=== PATIENT | female | born 1970 | race Caucasian/White ===

== ENCOUNTER 2016-08-14 13:40 | Inpatient (IN) | payer OTHER ==
[~2016-08-14] VITALS: Ht 162.6 cm; Wt 120.9 kg
[~2016-08-14 13:40] MED LIST: BPR100TCR PO; HYDR50CA PO; METH40CP PO; OXYC1CAP21 PO; PRAM0.5T PO; SCOP1PAT TD; TEMA15CA PO; [UNRECOGNIZED DRUG - CODE] PO
[2016-08-14 13:42] VITALS: BP 150/99; PULSE 85; RESP 20; O2SAT 98
[2016-08-14] MEDS ORDERED: LISI-571 PO (13:48)
[2016-08-14] MEDS ORDERED: TRAZ-118 PO (13:48)
[2016-08-14] MEDS ORDERED: Ondansetron 2 mg/mL 2 mL Inj IVPUSH ONE ×2 (14:10→15:45)
--- NOTE | 2016-08-14 15:04 | ED.REPORT ---
HPI-Abd Pain F 40 and Over Date of Service Aug 14, 2016 ED Provider: Jus Suero MD The patient is a 45 year old female with history of hypertension, who presents to the emergency department complaining of LLQ pain that began a few days. Today she has noticed pain in her LUQ and RLQ, and she has also experienced nausea, loose stools, and vomiting. She was seen at urgent care 2 days ago for similar pain and she had a CT scan that showed findings consistent with ovarian cancer. She was discharged home with Percocet for pain. The pain medication has not been helping. She has an appointment with an oncologist next . She was treated with Augmentin and another antibiotic that she does not recall, 2 months ago for bronchitis. Her last dose of Augmentin was a few days ago. She has still noticed a mild cough. She denies chills, fever, congestion, pleuritic pain, shortness of breath, chest pain, bloody stools, bloody emesis, dysuria, hematuria or rash. Nursing Notes Stated Complaint: SEVERE ABDOMINAL PAIN Chief Complaint: Female Abdominal Pain Nursing Notes Reviewed: Yes Allergies: Coded Allergies: Adhesives (Verified Allergy, Severe, SKIN REACTION, 08/14/16) Uncoded Allergies: TINC OF BENZOIN (Allergy, Severe, BLISTERS, 09/30/09) Scheduled Aspirin (Aspirin) 81 Mg Tablet 81 MG PO DAILY Cholecalciferol (Vitamin D3) (Vitamin D3) 2,000 Unit Capsule 2,000 UNIT PO DAILY Escitalopram Oxalate (Escitalopram Oxalate) 20 Mg Tablet 20 MG PO DAILY Hydrochlorothiazide (Hydrochlorothiazide) 25 Mg Tablet 25 MG PO DAILY Lisinopril (Lisinopril) 10 Mg Tablet 10 MG PO DAILY Multivitamin (Multivitamins) 1 Each Capsule 1 EACH PO DAILY Pramipexole Dihydrochloride (Mirapex) 0.5 Mg Tablet 0.5 MG PO HS Trazodone (Trazodone) 50 Mg Tablet 100 MG PO HS Scheduled PRN oxyCODONE-Acetaminophen 5-325 mg (oxyCODONE-Acetaminophen 5-325 mg) 1 Each Tablet 1-2 TAB PO Q6H PRN PRN For Pain General Time Seen by MD: 14:59 Chief Complaint Abdominal pain Hx Obtained From: Patient Arrived By: Walk-in Sudden in Onset?: No Onset Occurred: 4 days ago Symptom Duration: Since onset Progression since Onset: Constant Location: : LLQ Quality: Painful Radiation: : LUQ: RLQ Severity: Current: Moderate Severity: Maximum: Moderate Associated with: Reports: Nausea, Vomiting Pertinent Negative: Pt denies other symptoms Recent Healthcare: No recent hospitalization, Recent doctor visit, Prior workup Similar Sx Previous: Yes Past Medical History Past Medical History Hypertension Ovarian mass seen on CT (08/12/2016) Family History Noncontributory Smoking History Unknown if Ever Smoker Social History Other Social History: Local 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 Ears / Nose / Throat: Denies: Nasal congestion Skin: Denies Rash Physical Exam Vital Signs Vital Signs (First) Date Time Temp Pulse Resp B/P Pulse Ox O2 Delivery O2 Flow Rate FiO2 08/14/16 13:42 36.5 85 20 150/99 98 Room Air Initial VS: Reviewed Head / Eyes: Atraumatic, Normocephalic, PERRL ENT: Mucous membranes moist, Conjunctiva normal, No scleral icterus Neck: Supple, Non-tender, Full range of motion Lymphatic: No lymphadenopathy Extremities: Vascular intact, Neuro intact, No swelling, No tenderness Skin: Warm, Dry, No cyanosis Neurologic: Alert, Oriented, Nonfocal Psychiatric: Mood/affect normal, Behavior normal, Normal thought content General/Constitutional: Awake, Alert, Cooperative Respiratory / Chest: Atraumatic, Breath sounds NL, Breath sounds = bilat, No respiratory distress, No rales, No rhonchi, No wheezing, No stridor Cardiovascular: Heart rate NL, Regular rhythm, Heart sounds NL, No gallop, No murmurs, No rubs, Peripheral circulation NL Abdomen: Soft, No guarding, No rebound, BS normoactive, No distention, No hernia, No pulsatile mass Large palpable abdominal mass, distended abdomen. No significant tenderness. Back: Inspection NL, Non-tender, No CVA tenderness Lower Extremity / Pelvis / MS: Neurologic intact, Vascular intact, No edema No calf swelling or tenderness. Interpretation & Diagnostics Lab Results Interpretation Result Diagram: 08/14/16 1400 08/14/16 1400 Test 08/14/16 14:00 White Blood Count 7.3th/mm3 (3.8-10.1) Red Blood Count 4.17mil/mm3 (3.90-5.20) Hemoglobin 12.5g/dL (12.0-15.6) Hematocrit 37.0% (35.0-46.0) Mean Corpuscular Volume 88.7fL (81-100) Mean Corpuscular Hemoglobin 30.0pg (27.0-35.0) Mean Corpuscular Hemoglobin Concent 33.8% (32.0-37.0) Red Cell Distribution Width 12.7% (12.3-15.4) Platelet Count 401bil/L (150-400) Neutrophils (%) (Auto) 64.5% (40-74) Lymphocytes (%) (Auto) 26.3% (14-46) Monocytes (%) (Auto) 6.7% (4-12) Eosinophils (%) (Auto) 2.3% (0-5) Basophils (%) (Auto) 0.1% (0-3) Hold Purple Top Tube Received (Received) Hold Blue Top Tube Received (Received) Sodium Level 135mEq/L (134-144) Potassium Level 4.0mEq/L (3.5-5.2) Chloride Level 98mEq/L (97-108) Carbon Dioxide Level 24mmol/L (18-29) Blood Urea Nitrogen 12mg/dL (6-24) Creatinine 0.52mg/dL (0.57-1.00) Estimat Glomerular Filtration Rate 182mL/min (>59) Glucose Level 145mg/dL (60-99) Calcium Level 9.1mg/dL (8.5-10.1) Total Bilirubin 0.3mg/dL (0.0-1.2) Aspartate Amino Transf (AST/SGOT) 16U/L (0-50) Alanine Aminotransferase (ALT/SGPT) 16U/L (0-32) Alkaline Phosphatase 48U/L (25-150) Total Protein 7.3g/dL (6.4-8.4) Albumin 4.5g/dL (3.4-5.0) Hold [place] Top Tube Received (Received) Hold [place] Top Tube Received (Received) Re-Eval/Medical Decision Med Decision/Clinical Course The patient is a 45 year old female with history of hypertension, who presents to the emergency department complaining of LLQ pain that began a few days. Today she has noticed pain in her LUQ and RLQ, and she has also experienced nausea, loose stools, and vomiting. She was seen at urgent care 2 days ago for similar pain and she had a CT scan that showed findings consistent with ovarian cancer. She was discharged home with Percocet for pain. The pain medication has not been helping. She has an appointment with an oncologist next . She presents to the emergency department requesting pain management. She is afebrile, hemodynamically stable and in no apparent distress but somewhat uncomfortable. Prior to arrival she been treated with IV morphine though reported that this only moderately helped her pain. I additionally treated her with IV hydromorphone as well as IV fluids and she reported only minor improvement. Abdominal examination notable for large palpable mass though otherwise relatively benign. I see no indication at this time to obtain repeat imaging or laboratory studies. I reviewed her laboratory studies from urgent care which were relatively unremarkable. Patient stated that her pain was too severe to be able to go home and requested to be transferred to a facility with gynecology/oncology. I discussed the patient with the transfer center is at [facility] and due to lack of bed availability neither Center was able to accept the patient. After discussing further with the patient we opted to admit here for ongoing pain management. If a bed becomes available at the [facility] and she will likely be transferred there. Source of Hx: Old records Summary of Info: ABDOMEN/PELVIS CT IMPRESSION: 1. Large, predominantly cystic abdominal pelvic mass, which has an appearance most suggestive of ovarian carcinoma. 2. Right inguinal malorie metastasis versus direct extension of the above-described mass. Alternatively, this could represent postsurgical sequelae following herniorrhaphy. Recommend correlation with surgical history. Dictated by: Tristin Ponce M.D. on 08/12/2016 at 18:18 Re-Evaluation/Progress #1: Time of Eval: 16:27 Re-Evaluation/Progress Note: The patient is feeling better but still complains of abdominal pressure that she rates at about a 6-7/10. She would like more medication. Re-Evaluation/Progress #2: Time of Eval: 17:43 Re-Evaluation/Progress Note: Unable to control the patient's pain. She will be admitted to the hospital. Consultation #1: Call Returned at: 17:20 Note: Spoke with the transfer center at . They would like the imaging pushed. Consultation #2: Call Returned at: 17:30 Note: There are no beds at . Consultation #3: Referral / Consult Name: Brady Laurent MD Consulted With: Hospitalist Call Returned at: 17:44 Pathology Assistant: Will see patient, Agrees with eval, Agrees with plan, Accepts admit Counseled Regarding: Diagnosis, Lab results, Need for admission Discharge & Departure Primary Impression: Abdominal pain Abdominal location: unspecified location Qualified Code: R10.9 - Unspecified abdominal pain Additional Impressions: Ovarian mass Ovarian malignancy Laterality: unspecified laterality Qualified Code: C56.9 - Malignant neoplasm of unspecified ovary Intractable pain Disposition: ADMITTED TO HOSPITAL Discharge Condition All VS Reviewed: Yes Condition: Stable Referrals: Marybel Lee (PCP) Mino Attestation Portions of this note were transcribed by Mita Keita. I, Dr. Suero personally performed the history, physical exam and medical decision-making; I reviewed and confirmed the accuracy of the information in the transcribed note. Signed by: Mino Kendall, 08/14/2016 and [id number]. copies to: Marybel Lee Beck O MD Aug 14, 2016 15:04 Mita Keita Aug 14, 2016 15:09
[2016-08-14] MEDS ORDERED: 0.9% Sodium Chloride 1,000 ML IV ONE (15:43)
[2016-08-14] MEDS ORDERED: OXYC1TAB24 PO (15:45)
[2016-08-14] MEDS ORDERED: HYDROmorphone 1 mg/mL Inj IVPUSH ONE ×2 (15:45→16:30)
[2016-08-14] MEDS ORDERED: ONDA4TAB9 PO (15:46)
[2016-08-14] MEDS: HYDROmorphone 0.5 mg/0.5 mL iSecure Syringe IVPUSH PRN ×2 (17:00→17:51)
[2016-08-14] MEDS ORDERED: MetoCLOpramide 5 mg/mL 2 mL Inj IVPUSH PRN (17:30)
[2016-08-14] MEDS ORDERED: Alum-Mag Hydrox-Simeth 30 mL Suspension PO PRN (18:20)
[2016-08-14 18:28] LABS: BASOPHILS % (AUTO) 0.1 % (0-3); EOSINOPHILS % (AUTO) 2.3 % (0-5); MONOCYTES % (AUTO) 6.7 % (4-12); Mean Corpuscular Volume 88.7 fL (81-100); NEUTROPHILS % (AUTO) 64.5 % (40-74); Platelet Count 401 bil/L (150-400)
[2016-08-14] MEDS ORDERED: ASPI-973 PO (18:59)
[2016-08-14] MEDS ORDERED: TRAZ-115 PO (18:59)
[2016-08-14] MEDS ORDERED: MULT1CAP33 PO (18:59)
[2016-08-14] MEDS ORDERED: LISI10TA PO (18:59)
[2016-08-14] MEDS ORDERED: PRAM0.5T3 PO (18:59)
[2016-08-14] MEDS ORDERED: HYDR25TA4 PO (18:59)
[2016-08-14] MEDS ORDERED: ESCI20TA38 PO (18:59)
[2016-08-14] MEDS ORDERED: CHOL200047 PO (18:59)
--- NOTE | 2016-08-14 20:37 | PCM.HPMED ---
Subjective Date of Service Aug 14, 2016 Primary Provider: Admitting Physician: Brady Laurent MD Primary Care Physician: Marybel Lee Attending Physician: Brady Laurent MD Chief Complaint: Left lower quadrant abdominal pain/few days History of Present Illness: 45-year-old lady with past medical history of hypertension was recently diagnosed with ovarian mass 2 days ago came to emergency room due to worsening of left lower quadrant abdominal pain of 2 days. She has been having dull aching LLQ abdominal pain for last few weeks. She was seen in clinic and was diagnosed with ovarian mass by CT scan. She was prescribed oral narcotics. She was referred to [facility] for employee communications coordinator Onc eval and awaiting her appointment. She continued to have worsening of left lower quadrant pain which prompted ED visit. Pain is dull aching,12/14 . She states she also noted that she has an increasing abdominal girth for the last 3- 4 months. Denies weight loss. Denies constipation. 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 (Bupropion SR-Expunged Drug, Do Not Renew !) 100 Mg Tablet 1 TAB PO BID DO NOT CRUSH TABLET TAKE WITH FOOD Lisinopril (Lisinopril) 5 Mg Tablet 5 MG PO DAILY Oxycodone Hcl/APAP-Expunged, Do Not Renew! (Oxycodone-Apap [id number], Do Not Renew!) 1 Cap Capsule 1-2 TAB PO PRN Pramipexole-Expunged Drug, Do Not Renew! (Mirapex-Expunged Drug, Do Not Renew!) 0.5 Mg Tab 0.5 MG PO HSP Rizatriptan-Expunged Drug, Do Not Renew! (Maxalt-Expunged Drug, Do Not Renew!) 10 Mg Tablet 10 MG PO PRN MR X1 in 2 hours if no relief from Migraine Scopolamine-Expunged Drug, Do Not Renew! (Zedmviwlc-Yfhv-Wtbqvpag Drug, Do Not Renew!) 1 Patch .72 H Patch.td72 1 PATCH TD PRN Trazodone (Trazodone) 100 Mg Tablet 100 MG PO HS Scheduled PRN Ondansetron ODT (Zofran ODT) 4 Mg Tablet 4 MG PO Q4H PRN PRN For Nausea oxyCODONE-Acetaminophen 5-325 mg (oxyCODONE-Acetaminophen 5-325 mg) 1 Each Tablet 1-2 TAB PO Q6H PRN PRN For Pain PMH Hypertension Recently diagnosed ovarian mass recent submandibular ? Bacterial lymphadenopathy Surgical History Right elbow surgery Total abdominal hysterectomy Right inguinal hernia repair Cholecystectomy Right ankle fracture surgery Family History Maternal grandmother of ovarian cancer Social History Hx Alcohol Use: Yes (on occasiona) Hx Substance Use: No Smoking Status: Former Smoker Exam Vital Signs Vital Sign - Last Date Time Temp Pulse Resp B/P Pulse Ox O2 Delivery O2 Flow Rate FiO2 08/14/16 13:42 36.5 85 20 150/99 98 Room Air Exam Gen. patient is lying comfortably in hospital bed HEENT: Head is normocephalic atraumatic, Pupils equal and reactive, extraocular movements intact, Lungs clear to auscultation bilaterally Heart regular rate and rhythm without murmurs gallops or rubs Abdomen distended, 28 week cystic pelvic mass Extremities pulses are present dorsalis pedis posterior tibialis and radial. tSkin is warm and dry there are no rashes, Psych alert and oriented to person place and time Neuro cranial nerves II through XII are grossly intact Lymph: There is no lymphadenopathy appreciated in the cervical supra infraclavicular regions : no kaur Lab and Diagnostics Result Diagram: 08/14/16 1400 08/14/16 1400 X-Rays, CTs and MRIs PROCEDURE: CT ABDOMEN AND PELVIS WITH CONTRAST ([id number]) INDICATIONS: UNSPECIFIED ABDOMINAL PAIN, LLQ TENDERNESS TECHNIQUE: After the administration of oral and intravenous contrast, 5 mm thick sections acquired from the diaphragms to the symphysis. 5 mm thick coronal and sagittal reformats were performed. For radiation dose reduction, the following was used : automated exposure control, adjustment of mA and/or kV according to patient size. COMPARISON: [facility], CT, ABD/PELVIS W/CON (PNL), 10/05/2009, 21: 56. FINDINGS: Image quality: Excellent. ABDOMEN: Lung bases: Lung bases are clear. Heart size is normal. Solid organs: Liver and spleen are normal in size and enhancement. Gallbladder is surgically absent. Biliary system is non-dilated. Pancreas enhances normally. No adrenal nodules. Kidneys are normal in size and enhancement, without hydronephrosis. Peritoneum and bowel: There is a new large cystic mass occupying the pelvis, as well as the mid and lower abdomen, which demonstrates thickened dougherty ( measuring 11 mm thickness at its inferior and right inferolateral aspects), as well as several septations. The mass measures roughly 31 cm transverse by 27.8 cm craniocaudal by 21.7 cm anteroposterior, and displaces multiple small and large bowel loops. Stomach, small bowel, and colon loops are normal in caliber and wall thickness. No free fluid or air. Nodes and vessels: No retroperitoneal or mesenteric adenopathy. Aorta and inferior vena cava are normal in caliber. Miscellaneous: No ventral hernias. PELVIS: Genitourinary: Urinary bladder is decompressed. Status post hysterectomy. Miscellaneous: There is a low density soft tissue density focus within the right inguinal region measuring 28 mm transverse by 19 mm anteroposterior, which appears to be contiguous with the above described mass at its superomedial aspect, and may indicate a local/regional metastasis versus direct extension of the mass. Bones: No suspicious bony lesions. No vertebral body compression fractures. IMPRESSION: 1. Large, predominantly cystic abdominal pelvic mass, which has an appearance most suggestive of ovarian carcinoma. 2. Right inguinal malorie metastasis versus direct extension of the above- described mass. Alternatively, this could represent postsurgical sequelae following herniorrhaphy. Recommend correlation with surgical history. Dictated by: Tristin Ponce M.D. on 08/12/2016 at 18:18 Assessment & Plan 45-year-old lady with past medical history of hypertension was recently diagnosed with ovarian mass 2 days ago came to emergency room due to worsening of left lower quadrant abdominal pain of 2 days. #Intractable LLQ pain, acute on chronic,poa -Due to ovarian mass -dilaudid 1mg q3h iv ,will consider [employer] LAW EXAMINER if no response -may consider palliative consult if she is not transferred tomorrow # Suspected Ovarian cancer,chronic -ED physician tried to transfer her to for pain control , inpatient employee communications coordinator onc eval and possible biopsy as inpatient, no bed available at for now.may need to contact tomorrow .patient has appointment with [facility] employee communications coordinator/onc clinic.may as well try to transfer her to [facility] after pain control #Hypertension -Continue home lisinopril and HCTZ Full code Admitted under observation status for pain control overnight and possible transfer to either or [facility] for RESPIRATORY MEDICINE PHYSICIAN onc evaluation copies to: Marybel Lee Melaku MD Aug 14, 2016 20:37
[2016-08-14 20:48] VITALS: BP 138/81; PULSE 71; RESP 18; O2SAT 98
[2016-08-14] MEDS ORDERED: oxyCODONE-Acetamin 5-325 mg Tablet PO PRN (20:55)
[2016-08-14] MEDS: HYDROmorphone 1 mg/mL Inj IVPUSH PRN (21:20)
[2016-08-15 01:21] VITALS: BP 103/66; PULSE 81; RESP 16; O2SAT 98
[2016-08-15] MEDS: HYDROmorphone 1 mg/mL Inj IVPUSH PRN ×4 (01:39→10:49)
--- NOTE | 2016-08-15 03:08 | NUR ---
ARRIVAL TO UNIT Patient A&OX3 and trino,arrived to floor at 2039 via ED gurney. Able to ambulate to hospital bed via SBA without any difficulty. States 6/10 abdominal pain. 1mg Dilaudid IVP given Q3 hours. Upon reassessment patient states some relief. At this time patient states medication regimen has been sufficient. Denies and active nausea/vomiting. IV in R forearm is intact, patent and SL. K Pad ordered to assist with abdominal comfort, MD aware. Admission and Med Rec have been completed in the ER. Patient is currently sleeping and appears comfortable. Will continue to monitor.
[2016-08-15 05:58] VITALS: BP 104/68; PULSE 60; RESP 16; O2SAT 95
[2016-08-15 06:34] LABS: APPEARANCE,URINE CLEAR (CLEAR,HAZY); COLOR,URINE YELLOW (YELLOW); OCCULT BLOOD,URINE NEGATIVE (NEGATIVE); PH,URINE 5.5 (5.0-8.0); UROBILINOGEN,URINE NORMAL (NORMAL)
[2016-08-15 07:42] LABS: BASOPHILS % (AUTO) 0 % (0-3); EOSINOPHILS % (AUTO) 3.2 % (0-5); MONOCYTES % (AUTO) 9.1 % (4-12); Mean Corpuscular Hemoglobin 29.8 pg (27.0-35.0); Mean Corpuscular Volume 90.2 fL (81-100); NEUTROPHILS % (AUTO) 50.7 % (40-74); Platelet Count 302 bil/L (150-400)
--- NOTE | 2016-08-15 08:14 | PCM.PNMED ---
Subjective Date of Service Aug 15, 2016 Subjective Patient is seen and examined. She says pain in mostly in RUQ and RLQ and periumbilical, though she had pain last night in LUQ as well. Last BM was yesterday. Nausea and pain are well controlled. She says she could go to [facility] for further work up and it is ok with her. No other complaints. Exam Vital Signs Vital Sign - Last Date Time Temp Pulse Resp B/P Pulse Ox O2 Delivery O2 Flow Rate FiO2 08/15/16 05:58 36.4 60 16 104/68 95 Room Air Exam Gen.: Pleasant-appearing morbidly obese female HEENT: Normocephalic, atraumatic Heart regular rate and rhythm, negative for S3-S4 murmurs Abdomen: Large distended tight appearing, non-tympanic to percussion, normal bowel sounds Extremities trace swelling present Psych: Mildly anxious Neuro no focal deficits IVs and Medications Medications Reviewed: Medications were reviewed in detail Lab and Diagnostics Result Diagram: 08/15/1670408/15/16 07 X-Rays, CTs and MRIs PROCEDURE: CT ABDOMEN AND PELVIS WITH CONTRAST (PNL-7102) INDICATIONS: UNSPECIFIED ABDOMINAL PAIN, LLQ TENDERNESS TECHNIQUE: After the administration of oral and intravenous contrast, 5 mm thick sections acquired from the diaphragms to the symphysis. 5 mm thick coronal and sagittal reformats were performed. For radiation dose reduction, the following was used : automated exposure control, adjustment of mA and/or kV according to patient size. COMPARISON: [facility], CT, ABD/PELVIS W/CON (PN), 10/05/2009, 21: 56. FINDINGS: Image quality: Excellent. ABDOMEN: Lung bases: Lung bases are clear. Heart size is normal. Solid organs: Liver and spleen are normal in size and enhancement. Gallbladder is surgically absent. Biliary system is non-dilated. Pancreas enhances normally. No adrenal nodules. Kidneys are normal in size and enhancement, without hydronephrosis. Peritoneum and bowel: There is a new large cystic mass occupying the pelvis, as well as the mid and lower abdomen, which demonstrates thickened dougherty ( measuring 11 mm thickness at its inferior and right inferolateral aspects), as well as several septations. The mass measures roughly 31 cm transverse by 27.8 cm craniocaudal by 21.7 cm anteroposterior, and displaces multiple small and large bowel loops. Stomach, small bowel, and colon loops are normal in caliber and wall thickness. No free fluid or air. Nodes and vessels: No retroperitoneal or mesenteric adenopathy. Aorta and inferior vena cava are normal in caliber. Miscellaneous: No ventral hernias. PELVIS: Genitourinary: Urinary bladder is decompressed. Status post hysterectomy. Miscellaneous: There is a low density soft tissue density focus within the right inguinal region measuring 28 mm transverse by 19 mm anteroposterior, which appears to be contiguous with the above described mass at its superomedial aspect, and may indicate a local/regional metastasis versus direct extension of the mass. Bones: No suspicious bony lesions. No vertebral body compression fractures. IMPRESSION: 1. Large, predominantly cystic abdominal pelvic mass, which has an appearance most suggestive of ovarian carcinoma. 2. Right inguinal malorie metastasis versus direct extension of the above- described mass. Alternatively, this could represent postsurgical sequelae following herniorrhaphy. Recommend correlation with surgical history. Dictated by: Tristin Ponce M.D. on 08/12/2016 at 18:18 [facility] [place] [address] Patient Name: BRENDA THOMPSON V MR#: [id number] Location: [facility] Ordering Phys: Erin Lam DO Date of Service: 08/15/16 1758 PROCEDURE: CT ABDOMEN AND PELVIS WITH CONTRAST ([id number]) INDICATIONS: distension TECHNIQUE: After the administration of oral and intravenous contrast, 5 mm thick sections acquired from the diaphragms to the symphysis. 5 mm thick coronal and sagittal reformats were performed. For radiation dose reduction, the following was used : automated exposure control, adjustment of mA and/or kV according to patient size. COMPARISON: [facility], CT, CT ABD PELVIS W CON, 08/12/2016, 18:08. FINDINGS: Image quality: Excellent. ABDOMEN: Lung bases: Lung bases are clear. Heart size is normal. Solid organs: Liver and spleen are normal in size and enhancement. Gallbladder surgically absent. Biliary system is non-dilated. Pancreas enhances normally. No adrenal nodules. Kidneys are normal in size and enhancement, without hydronephrosis. Subcentimeter possible right renal cyst too small to characterize definitively. Peritoneum and bowel: Stomach, small bowel, and colon loops are normal in caliber and wall thickness. No free fluid or air. There is redemonstration of massive pelvic cystic lesion extending into the abdomen, with no definite interval change since 08/12/16 again most suspicious with ovarian carcinoma. Nodes and vessels: No retroperitoneal or mesenteric adenopathy. Aorta and inferior vena cava are normal in caliber. Miscellaneous: No ventral hernias. PELVIS: Genitourinary: Bladder wall thickness is normal. Miscellaneous: Right inguinal low attenuation focus is again noted and also unchanged with differential as previously discussed on prior study 08/12/16. Bones: No suspicious bony lesions. No vertebral body compression fractures. IMPRESSION: Overall, no interval change since 08/12/16. Redemonstration of large abdominal pelvic cystic mass, highly suspicious for ovarian carcinoma as before. No bowel obstruction. No ascites. Dictated by: Agus Call M.D. on 08/15/2016 at 18:29 Approved by: Agus Call M.D. on 08/15/2016 at 18:34 Assessment & Plan 45-year-old lady with past medical history of hypertension was recently diagnosed with ovarian mass 2 days ago came to emergency room due to worsening of left lower quadrant abdominal pain of 2 days. #Intractable LLQ pain, acute on chronic,poa -Due to ovarian mass -dilaudid 1mg q3h iv ,will consider PLASTIC SURGERY COORDINATOR if no response -He switch to Dilaudid pain pump due to lack of response to pain relief. We are in the process of contacting [facility] [place] # Suspected Ovarian cancer,chronic -ED physician tried to transfer her to for pain control , inpatient special education paraeducator onc eval and possible biopsy as inpatient, no bed available at for now.may need to contact tomorrow .patient has appointment with [facility] special education paraeducator/onc clinic.may as well try to transfer her to [facility] after pain control : We will and the process of contacting [facility]. #Hypertension -Continue home lisinopril and HCTZ Full code Admitted under observation status for pain control overnight and possible transfer to either or [facility] for SUPERINTENDENT SANITATION onc evaluation Pain Evaluation: Adequate Pain Control VTE Prophylaxis: Sub-Q Enoxaparin VTE Mechanical Devices: Intermittant Pneumatic CD Resuscitation Status: CPR: Attempt Resuscitation Erin Lam DO Aug 15, 2016 08:14
[2016-08-15] MEDS: Ondansetron 2 mg/mL 2 mL Inj IVPUSH PRN ×3 (09:00→18:22)
[2016-08-15] MEDS ORDERED: HYDROmorphone 1 mg/mL Inj IVPUSH PRN (13:18)
[2016-08-15] MEDS ORDERED: HYDROmorphone PCA 0.2 mg/mL 30 mL Inj IV PRN ×2 (13:20)
[2016-08-15 13:54] VITALS: RESP 18; O2SAT 95
[2016-08-15 15:01] VITALS: BP 121/75; PULSE 64; RESP 16; O2SAT 98
--- NOTE | 2016-08-15 16:24 | NUR ---
Social Work Note: Screen Note Data& Assessment: EMR reviewed. Sly Newell is a 45 year old female admitted on 08/14/2016 for intractable pain and ovarian mass. Pt has Group Health insurance coverage and sees [facility] for primary care. Pt lives in [place] with her spouse and is independent at baseline. Pt is currently a SBA in her room. MD is following for potential hospital transfer to [facility]. No discharge needs identified at this time. SW to continue to follow if any discharge needs arise. Plan: Anticipated discharge home via POV when medically ready vs. Transfer. No discharge needs identified at this time. SW to continue to follow if any discharge needs arise. IBRAHIMA Tang
[2016-08-15] MEDS: Polyethylene Glycol (PEG) 17 Gm Powder PO PRN (16:31)
--- NOTE | 2016-08-15 17:53 | NUR ---
increased abdominal pain/distention this evening patient reports increased abdominal pain despite the CLINICAL TEAM MANAGER pump. abdomen is distended worse over last 1-2 hours. increased nausea. hypoactive bowel tones. patient reports positive flatus. Dr Lam notified. Dr Lam came and reassessed. Abdominal CT scan to be ordered. IV zofran given for nausea, encouraged CLINICAL TEAM MANAGER use. continue to monitor.
--- NOTE | 2016-08-15 18:24 | NUR ---
CT CT scan completed. an additional 4 mg IV zofran given for nausea
--- NOTE | 2016-08-15 18:36 | DRSVH ---
PROCEDURE: CT ABDOMEN AND PELVIS WITH CONTRAST ([id number]) INDICATIONS: distension TECHNIQUE: After the administration of oral and intravenous contrast, 5 mm thick sections acquired from the diap hragms to the symphysis. 5 mm thick coronal and sagittal reformats were performed. For radiation do se reduction, the following was used: automated exposure control, adjustment of mA and/or kV accordi ng to patient size. COMPARISON: [facility], CT, CT ABD PELVIS W CON, 08/12/2016, 18:08. FINDINGS: Image quality: Excellent. ABDOMEN: Lung bases: Lung bases are clear. Heart size is normal. Solid organs: Liver and spleen are normal in size and enhancement. Gallbladder surgically absent. Biliary system is non-dilated. Pancreas enhances normally. No adrenal nodules. Kidneys are normal in size and enhancement, without hydronephrosis. Subcentimeter possible right renal cyst too small t o characterize definitively. Peritoneum and bowel: Stomach, small bowel, and colon loops are normal in caliber and wall thickness . No free fluid or air. There is redemonstration of massive pelvic cystic lesion extending into the abdomen, with no definite interval change since 08/12/16 again most suspicious with ovarian carcinoma. Nodes and vessels: No retroperitoneal or mesenteric adenopathy. Aorta and inferior vena cava are no rmal in caliber. Miscellaneous: No ventral hernias. PELVIS: Genitourinary: Bladder wall thickness is normal. Miscellaneous: Right inguinal low attenuation focus is again noted and also unchanged with differenti al as previously discussed on prior study 08/12/16. Bones: No suspicious bony lesions. No vertebral body compression fractures. IMPRESSION: Overall, no interval change since 08/12/16. Redemonstration of large abdominal pelvic cystic mass, high ly suspicious for ovarian carcinoma as before. No bowel obstruction. No ascites. Dictated by: Agus Call M.D. on 08/15/2016 at 18:29 Approved by: Agus Call M.D. on 08/15/2016 at 18:34
[2016-08-15 21:10] VITALS: BP 104/70; PULSE 69; RESP 20; O2SAT 95
--- NOTE | 2016-08-15 23:19 | NUR ---
Pain/ GLASSWARE MAKER Settings During change of shift patient was experiencing 10/10 abdominal pain, severe enough that patient was in position, diaphoretic and crying. Day shift nurse contacted the hospitalist and GLASSWARE MAKER Dilaudid settings were changed to .2/10/.8 with a bolus dose of .3mg. .3mg Bolus dose was given with day shift nurse, and patient stated some relief. Over the next 10 minutes patient was able to straighten self in bed, and receive more relief from pain. Patient continues to use GLASSWARE MAKER for pain management, and is currently sleeping and appears comfortable. DENTAL LABORATORY MANAGER applied, and 2LO2 via NC is being worn to maintain sats > 92%. Will continue to monitor.
[2016-08-16 01:10] VITALS: BP 112/73; PULSE 68; RESP 18; O2SAT 94
[2016-08-16 06:00] VITALS: BP 108/71; PULSE 67; RESP 16; O2SAT 94
[2016-08-16 06:09] LABS: BASOPHILS % (AUTO) 0 % (0-3); EOSINOPHILS % (AUTO) 2.7 % (0-5); MONOCYTES % (AUTO) 7.5 % (4-12); Mean Corpuscular Hemoglobin 29.3 pg (27.0-35.0); Mean Corpuscular Volume 90.1 fL (81-100); NEUTROPHILS % (AUTO) 54.8 % (40-74); Platelet Count 310 bil/L (150-400)
[2016-08-16] MEDS: HYDROmorphone PCA 0.2 mg/mL 30 mL Inj IV PRN ×2 (06:19→16:14)
[2016-08-16] MEDS: Ondansetron 2 mg/mL 2 mL Inj IVPUSH PRN ×3 (06:36→14:23)
[2016-08-16 13:22] VITALS: BP_SYST 114; BP_SYST 122; BP_DIAS 68; BP_DIAS 69; PULSE 71; PULSE 98; RESP 18; O2SAT 92; O2SAT 94
[2016-08-16] MEDS: Polyethylene Glycol (PEG) 17 Gm Powder PO PRN (14:24)
[2016-08-16] MEDS ORDERED: HYDROmorphone PCA 0.2 mg/mL 30 mL Inj IV PRN (16:45)
--- NOTE | 2016-08-16 16:45 | PCM.DIMED ---
Discharge Instructions Date of Service Aug 16, 2016 Dates of Hospitalization Aug 14, 2016 at 19:29 Discharge Diagnosis Discharge Diagnosis Ovarian cancer newly diagnosed on 08/12/16, Intractable pain Medication Instructions Patient needs dilaudid pain pump for transport. Test Results Laboratory Tests 72 Hours Test 08/14/16 14:00 08/15/16 06:06 08/15/16 07:05 08/16/16 05:40 White Blood Count 7.3th/mm3 (3.8-10.1) 6.0th/mm3 (3.8-10.1) 5.6th/mm3 (3.8-10.1) Red Blood Count 4.17mil/mm3 (3.90-5.20) 3.69mil/mm3 (3.90-5.20) 3.82mil/mm3 (3.90-5.20) Hemoglobin 12.5g/dL (12.0-15.6) 11.0g/dL (12.0-15.6) 11.2g/dL (12.0-15.6) Hematocrit 37.0% (35.0-46.0) 33.3% (35.0-46.0) 34.4% (35.0-46.0) Mean Corpuscular Volume 88.7fL (81-100) 90.2fL (81-100) 90.1fL (81-100) Mean Corpuscular Hemoglobin 30.0pg (27.0-35.0) 29.8pg (27.0-35.0) 29.3pg (27.0-35.0) Mean Corpuscular Hemoglobin Concent 33.8% (32.0-37.0) 33.0% (32.0-37.0) 32.6% (32.0-37.0) Red Cell Distribution Width 12.7% (12.3-15.4) 12.8% (12.3-15.4) 12.8% (12.3-15.4) Platelet Count 401bil/L (150-400) 302bil/L (150-400) 310bil/L (150-400) Neutrophils (%) (Auto) 64.5% (40-74) 50.7% (40-74) 54.8% (40-74) Lymphocytes (%) (Auto) 26.3% (14-46) 36.8% (14-46) 35.0% (14-46) Monocytes (%) (Auto) 6.7% (4-12) 9.1% (4-12) 7.5% (4-12) Eosinophils (%) (Auto) 2.3% (0-5) 3.2% (0-5) 2.7% (0-5) Basophils (%) (Auto) 0.1% (0-3) 0% (0-3) 0% (0-3) Hold Purple Top Tube Received (Received) Hold Blue Top Tube Received (Received) Sodium Level 135mEq/L (134-144) 138mEq/L (134-144) 138mEq/L (134-144) Potassium Level 4.0mEq/L (3.5-5.2) 4.3mEq/L (3.5-5.2) 4.2mEq/L (3.5-5.2) Chloride Level 98mEq/L (97-108) 102mEq/L (97-108) 99mEq/L (97-108) Carbon Dioxide Level 24mmol/L (18-29) 25mmol/L (18-29) 27mmol/L (18-29) Blood Urea Nitrogen 12mg/dL (6-24) 9mg/dL (6-24) 10mg/dL (6-24) Creatinine 0.52mg/dL (0.57-1.00) 0.55mg/dL (0.57-1.00) 0.70mg/dL (0.57-1.00) Estimat Glomerular Filtration Rate 182mL/min (>59) 170mL/min (>59) 129mL/min (>59) Glucose Level 145mg/dL (60-99) 103mg/dL (60-99) 111mg/dL (60-99) Calcium Level 9.1mg/dL (8.5-10.1) 8.6mg/dL (8.5-10.1) 8.8mg/dL (8.5-10.1) Total Bilirubin 0.3mg/dL (0.0-1.2) 0.4mg/dL (0.0-1.2) 0.3mg/dL (0.0-1.2) Aspartate Amino Transf (AST/SGOT) 16U/L (0-50) 12U/L (0-50) 10U/L (0-50) Alanine Aminotransferase (ALT/SGPT) 16U/L (0-32) 12U/L (0-32) 12U/L (0-32) Alkaline Phosphatase 48U/L (25-150) 36U/L (25-150) 38U/L (25-150) Total Protein 7.3g/dL (6.4-8.4) 6.1g/dL (6.4-8.4) 5.9g/dL (6.4-8.4) Albumin 4.5g/dL (3.4-5.0) 3.8g/dL (3.4-5.0) 3.9g/dL (3.4-5.0) Hold [place] Top Tube Received (Received) Hold [place] Top Tube Received (Received) Urine Color Yellow (YELLOW) Urine Appearance Clear (CLEAR,HAZY) Urine pH 5.5 (5.0-8.0) Urine Specific [place] 1.029 (1.003-1.035) Urine Protein Negativemg/dL (NEG,TRACE) Urine Glucose (UA) Negativemg/dL (NEGATIVE) Urine Ketones Negativemg/dL (NEGATIVE) Urine Occult Blood Negative (NEGATIVE) Urine Nitrite Negative (NEGATIVE) Urine Bilirubin Negative (NEGATIVE) Urine Urobilinogen Normalmg/dL (NORMAL) Urine Leukocyte Esterase Negative (NEGATIVE) Urine RBC 0-2/hpf (0-2) Urine WBC 0-5/hpf (0-5) Urine Epithelial Cells Many/hpf (NONE-MOD) Urine Crystals None seen (NONE SEEN) Urine Bacteria Few/hpf (NONE-FEW) Urine Hyaline Casts None/lpf (NONE) Urine Granular Casts None seen (NONE SEEN) Urine Waxy Casts None seen (NONE SEEN) Urine Red Blood Cell Casts None seen (NONE SEEN) Urine White Blood Cell Casts None seen (NONE SEEN) Urine Mucus Present (None Seen) Urine Trichomonas None seen (NONE SEEN) Urine Yeast None (NONE SEEN) Urine Culture Reflexed Not indicated Diet No restrictions Activity No restrictions Patient Instructions Follow-up plan As determined by the receiving facility Erin Lam DO Aug 16, 2016 16:45
[2016-08-16] MEDS ORDERED: HYDR2VIA2 IV (16:47)
[2016-08-16] MEDS ORDERED: ONDA4VIA27 IVPUSH (16:47)
[2016-08-16] MEDS ORDERED: SENN-133 PO (16:47)
[2016-08-16] MEDS ORDERED: Al Hydrox/Mg Hydrox/Simeth PO (16:47)
[2016-08-16] MEDS ORDERED: POLY17PO6 PO (16:47)
--- NOTE | 2016-08-16 16:53 | PCM.DC.MED ---
Discharge Summary Date of Service Aug 16, 2016 Dates of Hospitalization Date of Hospital Admission Aug 14, 2016 at 19:29 Date of Discharge: Aug 16, 2016 Providers: Admitting Physician: Brady Laurent MD Primary Care Physician: Marybel Lee Attending Physician: Brady Laurent MD Diagnosis at Time of Discharge Diagnosis at Time of Discharge Ovarian cancer newly diagnosed on 08/12/16, Intractable pain, HTN, Depression Procedures XRay, CTs & MRIs PROCEDURE: CT ABDOMEN AND PELVIS WITH CONTRAST (PNL-7102) INDICATIONS: UNSPECIFIED ABDOMINAL PAIN, LLQ TENDERNESS TECHNIQUE: After the administration of oral and intravenous contrast, 5 mm thick sections acquired from the diaphragms to the symphysis. 5 mm thick coronal and sagittal reformats were performed. For radiation dose reduction, the following was used : automated exposure control, adjustment of mA and/or kV according to patient size. COMPARISON: [facility], CT, ABD/PELVIS W/CON (PN), 10/05/2009, 21: 56. FINDINGS: Image quality: Excellent. ABDOMEN: Lung bases: Lung bases are clear. Heart size is normal. Solid organs: Liver and spleen are normal in size and enhancement. Gallbladder is surgically absent. Biliary system is non-dilated. Pancreas enhances normally. No adrenal nodules. Kidneys are normal in size and enhancement, without hydronephrosis. Peritoneum and bowel: There is a new large cystic mass occupying the pelvis, as well as the mid and lower abdomen, which demonstrates thickened dougherty ( measuring 11 mm thickness at its inferior and right inferolateral aspects), as well as several septations. The mass measures roughly 31 cm transverse by 27.8 cm craniocaudal by 21.7 cm anteroposterior, and displaces multiple small and large bowel loops. Stomach, small bowel, and colon loops are normal in caliber and wall thickness. No free fluid or air. Nodes and vessels: No retroperitoneal or mesenteric adenopathy. Aorta and inferior vena cava are normal in caliber. Miscellaneous: No ventral hernias. PELVIS: Genitourinary: Urinary bladder is decompressed. Status post hysterectomy. Miscellaneous: There is a low density soft tissue density focus within the right inguinal region measuring 28 mm transverse by 19 mm anteroposterior, which appears to be contiguous with the above described mass at its superomedial aspect, and may indicate a local/regional metastasis versus direct extension of the mass. Bones: No suspicious bony lesions. No vertebral body compression fractures. IMPRESSION: 1. Large, predominantly cystic abdominal pelvic mass, which has an appearance most suggestive of ovarian carcinoma. 2. Right inguinal malorie metastasis versus direct extension of the above- described mass. Alternatively, this could represent postsurgical sequelae following herniorrhaphy. Recommend correlation with surgical history. Dictated by: Tristin Ponce M.D. on 08/12/2016 at 18:18 [facility] Diagnostic Imaging Department [place], [place] [id number] Patient Name: BRENDA THOMPSON V MR#: [id number] [place] [facility] [place] Phys: Erin Casillas DO Date of Service: 08/15/16 5230 PROCEDURE: CT ABDOMEN AND PELVIS WITH CONTRAST (PNL-7102) INDICATIONS: distension TECHNIQUE: After the administration of oral and intravenous contrast, 5 mm thick sections acquired from the diaphragms to the symphysis. 5 mm thick coronal and sagittal reformats were performed. For radiation dose reduction, the following was used : automated exposure control, adjustment of mA and/or kV according to patient size. COMPARISON: [facility], CT, CT ABD PELVIS W CON, 08/12/2016, 18:08. FINDINGS: Image quality: Excellent. ABDOMEN: Lung bases: Lung bases are clear. Heart size is normal. Solid organs: Liver and spleen are normal in size and enhancement. Gallbladder surgically absent. Biliary system is non-dilated. Pancreas enhances normally. No adrenal nodules. Kidneys are normal in size and enhancement, without hydronephrosis. Subcentimeter possible right renal cyst too small to characterize definitively. Peritoneum and bowel: Stomach, small bowel, and colon loops are normal in caliber and wall thickness. No free fluid or air. There is redemonstration of massive pelvic cystic lesion extending into the abdomen, with no definite interval change since 08/12/16 again most suspicious with ovarian carcinoma. Nodes and vessels: No retroperitoneal or mesenteric adenopathy. Aorta and inferior vena cava are normal in caliber. Miscellaneous: No ventral hernias. PELVIS: Genitourinary: Bladder wall thickness is normal. Miscellaneous: Right inguinal low attenuation focus is again noted and also unchanged with differential as previously discussed on prior study 08/12/16. Bones: No suspicious bony lesions. No vertebral body compression fractures. IMPRESSION: Overall, no interval change since 08/12/16. Redemonstration of large abdominal pelvic cystic mass, highly suspicious for ovarian carcinoma as before. No bowel obstruction. No ascites. Dictated by: Agus Call M.D. on 08/15/2016 at 18:29 Approved by: Agus Call M.D. on 08/15/2016 at 18:34 Brief History 45-year-old lady with past medical history of hypertension was recently diagnosed with ovarian mass 2 days ago came to emergency room due to worsening of left lower quadrant abdominal pain of 2 days prior to that arrival. She has been having dull aching LLQ abdominal pain for last few weeks. She was seen in clinic and was diagnosed with ovarian mass by CT scan. She was prescribed oral narcotics. She was referred to [facility] for putty mixer Onc eval and awaiting her appointment. She continued to have worsening of left lower quadrant pain which prompted ED visit. Pain is dull aching,7/10 . She states she also noted that she has an increasing abdominal girth for the last 3-4 months. Denies weight loss. Denies constipation. Denies fever. 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 Hospital Course 45-year-old lady with past medical history of hypertension was recently diagnosed with ovarian mass 2 days ago came to emergency room due to worsening of left lower quadrant abdominal pain of 2 days intractable LLQ pain Intractable pain due to ovarian mass, present on admission. Patient is on a [employer] dilaudid pump with these following settings: 0.2mg bolus for up to 1 mg per hr with 10 min lockout. She need two increments of dose titration so far. # Suspected Ovarian cancer,chronic: As above #Hypertension: We continued home lisinopril and HCTZ Exam Vital Signs (Last) Date Time Temp Pulse Resp B/P Pulse Ox O2 Delivery O2 Flow Rate FiO2 08/16/16 13:22 36.8 71 18 114/68 94 Room Air Exam General: She appears to be in moderate distress HEENT: Normocephalic atraumatic Heart: Regular rate and rhythm no S3-S4 murmurs Lungs: Clear to auscultation no wheezes or crackles heard Abdomen: Bowel sounds are present in the right upper quadrant as well as left lower quadrant. Tenderness to palpation over left lower quadrant, below the umbilicus, right lower quadrant Extremities: Trace edema is present Neurological: No focal deficits Psychiatric: Mildly anxious Test 08/14/16 14:00 08/15/16 06:06 08/16/16 05:40 Hold Purple Top Tube Received (Received) Hold Blue Top Tube Received (Received) Hold [place] Top Tube Received (Received) Hold [place] Top Tube Received (Received) Urine Color Yellow (YELLOW) Urine Appearance Clear (CLEAR,HAZY) Urine pH 5.5 (5.0-8.0) Urine Specific [place] 1.029 (1.003-1.035) Urine Protein Negativemg/dL (NEG,TRACE) Urine Glucose (UA) Negativemg/dL (NEGATIVE) Urine Ketones Negativemg/dL (NEGATIVE) Urine Occult Blood Negative (NEGATIVE) Urine Nitrite Negative (NEGATIVE) Urine Bilirubin Negative (NEGATIVE) Urine Urobilinogen Normalmg/dL (NORMAL) Urine Leukocyte Esterase Negative (NEGATIVE) Urine RBC 0-2/hpf (0-2) Urine WBC 0-5/hpf (0-5) Urine Epithelial Cells Many/hpf (NONE-MOD) Urine Crystals None seen (NONE SEEN) Urine Bacteria Few/hpf (NONE-FEW) Urine Hyaline Casts None/lpf (NONE) Urine Granular Casts None seen (NONE SEEN) Urine Waxy Casts None seen (NONE SEEN) Urine Red Blood Cell Casts None seen (NONE SEEN) Urine White Blood Cell Casts None seen (NONE SEEN) Urine Mucus Present (None Seen) Urine Trichomonas None seen (NONE SEEN) Urine Yeast None (NONE SEEN) Urine Culture Reflexed Not indicated White Blood Count 5.6th/mm3 (3.8-10.1) Red Blood Count 3.82mil/mm3 (3.90-5.20) Hemoglobin 11.2g/dL (12.0-15.6) Hematocrit 34.4% (35.0-46.0) Mean Corpuscular Volume 90.1fL (81-100) Mean Corpuscular Hemoglobin 29.3pg (27.0-35.0) Mean Corpuscular Hemoglobin Concent 32.6% (32.0-37.0) Red Cell Distribution Width 12.8% (12.3-15.4) Platelet Count 310bil/L (150-400) Neutrophils (%) (Auto) 54.8% (40-74) Lymphocytes (%) (Auto) 35.0% (14-46) Monocytes (%) (Auto) 7.5% (4-12) Eosinophils (%) (Auto) 2.7% (0-5) Basophils (%) (Auto) 0% (0-3) Sodium Level 138mEq/L (134-144) Potassium Level 4.2mEq/L (3.5-5.2) Chloride Level 99mEq/L (97-108) Carbon Dioxide Level 27mmol/L (18-29) Blood Urea Nitrogen 10mg/dL (6-24) Creatinine 0.70mg/dL (0.57-1.00) Estimat Glomerular Filtration Rate 129mL/min (>59) Glucose Level 111mg/dL (60-99) Calcium Level 8.8mg/dL (8.5-10.1) Total Bilirubin 0.3mg/dL (0.0-1.2) Aspartate Amino Transf (AST/SGOT) 10U/L (0-50) Alanine Aminotransferase (ALT/SGPT) 12U/L (0-32) Alkaline Phosphatase 38U/L (25-150) Total Protein 5.9g/dL (6.4-8.4) Albumin 3.9g/dL (3.4-5.0) Discharge Medications Discharge Medications Aspirin (Aspirin) 81 Mg Tablet 81 MG PO DAILY (Reported) Cholecalciferol (Vitamin D3) (Vitamin D3) 2,000 Unit Capsule 2,000 UNIT PO DAILY (Reported) Escitalopram Oxalate (Escitalopram Oxalate) 20 Mg Tablet 20 MG PO DAILY ( Reported) Hydrochlorothiazide (Hydrochlorothiazide) 25 Mg Tablet 25 MG PO DAILY (Reported ) Lisinopril (Lisinopril) 10 Mg Tablet 10 MG PO DAILY (Reported) Multivitamin (Multivitamins) 1 Each Capsule 1 EACH PO DAILY (Reported) Pramipexole Dihydrochloride (Mirapex) 0.5 Mg Tablet 0.5 MG PO HS (Reported) Trazodone (Trazodone) 50 Mg Tablet 100 MG PO HS (Reported) As needed ([Al Hydrox/Mg Hydrox/Simeth]) 30 ML SUSP 30 ML PO Q6H PRN PRN For Dyspepsia or Heartburn Prescribed by: ERIN CASILLAS DO Hydromorphone PF (Hydromorphone PF) 2 Mg/1 Ml Vial 0 MG IV DIRECTED PRN PRN For Pain Prescribed by: ERIN CASILLAS DO Ondansetron PF (Ondansetron PF) 4 Mg/2 Ml Vial 4 MG IVPUSH Q6H PRN PRN For Nausea/Vomiting Prescribed by: ERIN CASILLAS DO Polyethylene Glycol 3350 (Miralax) 17 Gm Powd.pack 17 GM PO DAILY PRN PRN For Constipation Prescribed by: ERIN CASILLAS DO Sennosides (Senna) 8.6 Mg Tablet 17.2 MG PO BID PRN PRN For Constipation Prescribed by: ERIN CASILLAS DO Additional med instructions Patient needs dilaudid pain pump for transport. Followup Plan Follow-up plan As determined by the receiving facility Discharge Diet: No restrictions Discharge Activity: No restrictions Erin Casillas DO Aug 16, 2016 16:53
[2016-08-16 17:09] VITALS: RESP 18
--- NOTE | 2016-08-16 17:42 | NUR ---
report called for transfer received orders to transfer patient to [facility] in [place]. I called report to Rosa Hughes RN. patient will be going into room A709-2 at [facility]. awaiting [facility] transportation.
--- NOTE | 2016-08-16 19:08 | NUR ---
transfer to [facility] arrived, report given. patient transferred to [facility] in [place].
[2016-08-16 19:15] VITALS: RESP 16
== END 2016-08-16 19:00 | disposition short-term general hospital (02) | DRG 756 ==
LOC: SED 13:40 → OSC 19:29
PROVIDERS: ADMIT Internal Medicine; ATTEND Internal Medicine
DX: C56.9 Malignant neoplasm of unspecified ovary (principal); I10 Essential (primary) hypertension; Z87.891 Personal history of nicotine dependence; Z79.82 Long term (current) use of aspirin

== ENCOUNTER 2016-09-02 12:53 | Emergency (ER) | payer OTHER ==
[~2016-09-02] VITALS: Ht 162.6 cm; Wt 107.7 kg
[~2016-09-02 12:53] MED LIST changes: +ASPI-973 PO; +Al Hydrox/Mg Hydrox/Simeth PO; -BPR100TCR PO; +CHOL200047 PO; +ESCI20TA38 PO; +HYDR25TA4 PO; +HYDR2VIA2 IV; -HYDR50CA PO; +LISI10TA PO; -METH40CP PO; +MULT1CAP33 PO; +ONDA4VIA27 IVPUSH; -OXYC1CAP21 PO; +POLY17PO6 PO; -PRAM0.5T PO; +PRAM0.5T3 PO; -SCOP1PAT TD; +SENN-133 PO; -TEMA15CA PO; +TRAZ-115 PO; -[UNRECOGNIZED DRUG - CODE] PO
[2016-09-02 12:58] VITALS: BP 141/95; PULSE 85; RESP 16; O2SAT 98
--- NOTE | 2016-09-02 13:29 | ED.REPORT ---
HPI-General Illness Date of Service Sep 02, 2016 ED Provider: Haseeb Tilley MD The patient is a 45 year old female with history of hypertension, who presents to the emergency department complaining of a post-operative complications. The patient had an ovarian tumor removed at [place] 2 weeks ago and has since developed swelling, redness, and pain. She was seen 2 days ago by the PA in the clinic and started her on Amoxicillin. Since then the area has became more tender and today she was able to express about 1-1.5 cups of serous fluid from the incision site. She spoke with the on-call surgeon today who recommended evaluation in the emergency department. She is feeling a little better now but does complain of some nausea. She denies fever, chills, vomiting or diarrhea. Nursing Notes Stated Complaint: 2 WEEK POSTO OP ABD SEROMA Chief Complaint: Wound Recheck/Suture Removal Nursing Notes Reviewed: Yes Allergies: Coded Allergies: Adhesives (Verified Allergy, Severe, SKIN REACTION, 09/02/16) Uncoded Allergies: TINC OF BENZOIN (Allergy, Severe, BLISTERS, 09/30/09) Scheduled Aspirin (Aspirin) 81 Mg Tablet 81 MG PO DAILY Cholecalciferol (Vitamin D3) (Vitamin D3) 2,000 Unit Capsule 2,000 UNIT PO DAILY Clindamycin (Clindamycin) 300 Mg Capsule 300 MG PO QID Escitalopram Oxalate (Escitalopram Oxalate) 20 Mg Tablet 20 MG PO DAILY Hydrochlorothiazide (Hydrochlorothiazide) 25 Mg Tablet 25 MG PO DAILY Lisinopril (Lisinopril) 10 Mg Tablet 10 MG PO DAILY Multivitamin (Multivitamins) 1 Each Capsule 1 EACH PO DAILY Pramipexole Dihydrochloride (Mirapex) 0.5 Mg Tablet 0.5 MG PO HS Trazodone (Trazodone) 50 Mg Tablet 100 MG PO HS Scheduled PRN ([Al Hydrox/Mg Hydrox/Simeth]) 30 ML SUSP 30 ML PO Q6H PRN PRN For Dyspepsia or Heartburn Hydromorphone PF (Hydromorphone PF) 2 Mg/1 Ml Vial 0 MG IV DIRECTED PRN PRN For Pain Ondansetron PF (Ondansetron PF) 4 Mg/2 Ml Vial 4 MG IVPUSH Q6H PRN PRN For Nausea/Vomiting Polyethylene Glycol 3350 (Miralax) 17 Gm Powd.pack 17 GM PO DAILY PRN PRN For Constipation Sennosides (Senna) 8.6 Mg Tablet 17.2 MG PO BID PRN PRN For Constipation General Time Seen by MD: 13:17 Chief Complaint Other (post-op complication) Hx Obtained From: Patient Arrived By: Walk-in Sudden in Onset?: No Onset Occurred: More than a week ago... 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 Physical Exam Vital Signs Vital Signs Date Time Temp Pulse Resp B/P Pulse Ox O2 Delivery O2 Flow Rate FiO2 09/02/16 17:07 36.8 74 16 124/79 97 Room Air 09/02/16 12:58 36.4 85 16 141/95 98 Room Air Initial VS: Reviewed Head / Eyes: Atraumatic, Normocephalic, PERRL ENT: Mucous membranes moist, Conjunctiva normal, No scleral icterus Neck: Supple, Non-tender, Full range of motion Respiratory: Breath sounds normal, Clear to auscultation, No respiratory distress Cardiovascular: Regular rate & rhythm, Heart sounds normal, Intact distal pulses Lymphatic: No lymphadenopathy Extremities: Vascular intact, Neuro intact, No swelling, No tenderness Skin: Warm, Dry, No cyanosis Neurologic: Alert, Oriented, Nonfocal Psychiatric: Mood/affect normal, Behavior normal, Normal thought content General/Constitutional: Awake, Alert, Cooperative Abdomen: Soft, No guarding, No rebound, BS normoactive, No distention, No hernia, No palpable mass, No pulsatile mass She has a midline surgical incision that appears to be healing well with some mild surrounding erythema and some swelling. There is no active discharge. Mild tenderness. No fluctuance. Interpretation & Diagnostics Lab Results Interpretation Result Diagram: 09/02/16 1440 09/02/16 1440 Test 09/02/16 14:40 White Blood Count 5.3th/mm3 (3.8-10.1) Red Blood Count 5.54mil/mm3 (3.90-5.20) Hemoglobin 16.1g/dL (12.0-15.6) Hematocrit 46.8% (35.0-46.0) Mean Corpuscular Volume 84.5fL (81-100) Mean Corpuscular Hemoglobin 29.1pg (27.0-35.0) Mean Corpuscular Hemoglobin Concent 34.4% (32.0-37.0) Red Cell Distribution Width 12.4% (12.3-15.4) Platelet Count 321bil/L (150-400) Neutrophils (%) (Auto) 65.9% (40-74) Lymphocytes (%) (Auto) 22.1% (14-46) Monocytes (%) (Auto) 6.1% (4-12) Eosinophils (%) (Auto) 5.7% (0-5) Basophils (%) (Auto) 0% (0-3) Hold Urine Received (Received) Sodium Level 136mEq/L (134-144) Potassium Level 4.0mEq/L (3.5-5.2) Chloride Level 95mEq/L (97-108) Carbon Dioxide Level 24mmol/L (18-29) Blood Urea Nitrogen 9mg/dL (6-24) Creatinine 0.51mg/dL (0.57-1.00) Estimat Glomerular Filtration Rate 186mL/min (>59) Glucose Level 105mg/dL (60-99) Lactic Acid Level 0.7mmol/L (0.4-2.0) Calcium Level 9.7mg/dL (8.5-10.1) Magnesium Level 2.2mg/dL (1.6-2.6) Total Bilirubin 0.3mg/dL (0.0-1.2) Aspartate Amino Transf (AST/SGOT) 12U/L (0-50) Alanine Aminotransferase (ALT/SGPT) 17U/L (0-32) Alkaline Phosphatase 68U/L (25-150) Total Protein 7.5g/dL (6.4-8.4) Albumin 4.1g/dL (3.4-5.0) Lipase 24U/L (13-60) Re-Eval/Medical Decision Med Decision/Clinical Course 44 yo f 2 weeks s/p ovarian mass removal (reportedly benign) p/w serous drainage today. No drainage on arrival. No f/c/n/v. Wound warm with slight surrounding erythema appears indurated less likely cellulitic. Sent wound fluid cx. Wbc nml. Abd CT with post op changes no e/o abscess. Discussed with patient and will d/c with clindamycin and f/u Surgeon tomorrow. Return precautions given. Source of Hx: Old records, Family Time of Eval: 13:43 Re-Evaluation/Progress Note: Discussed plan for labs and CT. She understands and agrees with plan. Counseled Regarding: Diagnosis, Lab results Discharge & Departure Primary Impression: Post-operative complication Discharge Condition All VS Reviewed: Yes Condition: Stable Referrals: Marybel Lee (PCP) Scribe Attestation Portions of this note were transcribed by Mita Keita. I, Dr. Tilley personally performed the history, physical exam and medical decision-making; I reviewed and confirmed the accuracy of the information in the transcribed note. Signed by: Mino Kendall, 09/02/2016 at 1500. copies to: Marybel Lee Ben M MD Sep 02, 2016 13:28 Mita Keita Sep 02, 2016 13:31
[2016-09-02] MEDS ORDERED: 0.9% Sodium Chloride 1,000 ML IV ONE (13:45)
[2016-09-02] MEDS ORDERED: Ondansetron 2 mg/mL 2 mL Inj IVPUSH PRN (13:45)
[2016-09-02 14:55] LABS: BASOPHILS % (AUTO) 0 % (0-3); EOSINOPHILS % (AUTO) 5.7 % (0-5); MONOCYTES % (AUTO) 6.1 % (4-12); Mean Corpuscular Hemoglobin 29.1 pg (27.0-35.0); Mean Corpuscular Volume 84.5 fL (81-100); NEUTROPHILS % (AUTO) 65.9 % (40-74); Platelet Count 321 bil/L (150-400)
[2016-09-02 15:18] LABS: Magnesium 2.2 mg/dL (1.6-2.6)
--- NOTE | 2016-09-02 16:22 | DRSVH ---
PROCEDURE: CT ABDOMEN AND PELVIS WITH CONTRAST (PNL-7102) INDICATIONS: abd pain/swelling s/p ovarian benign tumor removal TECHNIQUE: After the administration of intravenous contrast, 5 mm thick sections acquired from the diaphragm to the symphysis. 5 mm coronal and sagittal reformats were acquired. For radiation dose reduction, the following was used: automated exposure control, adjustment of mA and/or kV according to patient siz e. COMPARISON: [facility], CT, CT ABD PELVIS W CON, 08/15/2016, 18:15. FINDINGS: Image quality: Excellent. ABDOMEN: Lung bases: Lung bases are clear. Heart size is normal. Solid organs: Liver and spleen are normal in size and enhancement. Hepatic steatosis is present. Ga llbladder has been removed. Biliary system is non dilated. Pancreas enhances normally. No adrenal n odules. Kidneys demonstrate normal size and enhancement, without hydronephrosis. Peritoneum and bowel: Bowel loops demonstrate normal wall thickness and caliber. No free fluid or a ir. Nodes and vessels: No retroperitoneal or mesenteric adenopathy by size criteria. Aorta and inferior vena cava are normal in size. Miscellaneous: Postoperative changes are present within the ventral abdomen without gross evidence of abscess. There are areas of stranding within the abdominal and pelvic mesenteric fat, possibly posto perative. There are areas of mild nodular coarsening along anterior left pelvis seen on series 2 imag e 50. There is a soft tissue density measuring approximately 28 mm in the in the anterior right aspect of the pelvis. It is noted that this was present on prior exam and appea red to potentially be connected to the larger cystic mass. PELVIS: Genitourinary: Bladder wall thickness is normal. Miscellaneous: No inguinal hernias or adenopathy. Bones: No suspicious bony lesions. No vertebral body compression fractures. IMPRESSION: 1. Interval resection of previous large abdominal/pelvic cystic mass. No acute intra-abdominal or pel samantha process. 2. Scattered areas of coarsening within the mesenteric fat of the lower abdomen and pelvis. Findings could be related to postsurgical change. However, there is a peritoneal carcinomatosis or metastatic foci cannot be definitively excluded particularly within the anterior right lower pelvis as above. Re commend short interval imaging followup for further evaluation of these regions. Dictated by: Stacie Dyer M.D. on 09/02/2016 at 16:09 Approved by: Stacie Dyer M.D. on 09/02/2016 at 16:20
[2016-09-02] MEDS ORDERED: CLIN-78 PO (16:51)
[2016-09-02 17:07] VITALS: BP 124/79; PULSE 74; RESP 16; O2SAT 97
== END 2016-09-02 17:07 | disposition home or self-care (01) ==
LOC: SED 13:33
DX: N99.89 Other postprocedural complications and disorders of genitourinary system (principal); R11.0 Nausea; G89.18 Other acute postprocedural pain; L53.9 Erythematous condition, unspecified; R19.00 Intra-abdominal and pelvic swelling, mass and lump, unspecified site; I10 Essential (primary) hypertension; Z98.890 Other specified postprocedural states; Z87.891 Personal history of nicotine dependence; Z79.82 Long term (current) use of aspirin; Z88.8 Allergy status to other drugs, medicaments and biological substances; Z91.048 Other nonmedicinal substance allergy status
CPT/HCPCS: 36415; 74177; 80053; 83605; 83690; 83735; 85025; 87040; 87070; 87075; 87205; 96361; 96374; 96375; 99285; J2270; J2405; J7030; Q9967

== ENCOUNTER 2016-09-29 12:43 | Emergency (ER) | payer OTHER ==
[~2016-09-29] VITALS: Ht 162.6 cm; Wt 108.6 kg
[~2016-09-29 12:43] MED LIST changes: +CLIN-78 PO
[2016-09-29 12:56] VITALS: BP 131/95; PULSE 74; RESP 16; O2SAT 98
--- NOTE | 2016-09-29 13:10 | ED.REPORT ---
HPI-Abd Pain F 40 and Over Date of Service Sep 29, 2016 ED Provider: Haseeb Tilley MD 45 year old female who is 5 weeks post-op ovarian tumor removal presents to the ER complaining of abdominal pain. After her surgery she developed a seroma that she has been packing, and she has been experiencing increased pain and pressure since removing the packing today. Associated symptoms include nausea and dry- heaving yesterday. Symptoms have been treated with Zofran. She has been on courses of amoxicillin and clindamycin since the procedure. Nursing Notes Stated Complaint: ABDOMINAL PAIN Chief Complaint: Female Abdominal Pain Nursing Notes Reviewed: Yes Allergies: Coded Allergies: Adhesives (Verified Allergy, Severe, SKIN REACTION, 09/29/16) Uncoded Allergies: TINC OF BENZOIN (Allergy, Severe, BLISTERS, 09/30/09) Scheduled Aspirin (Aspirin) 81 Mg Tablet 81 MG PO DAILY Cholecalciferol (Vitamin D3) (Vitamin D3) 2,000 Unit Capsule 2,000 UNIT PO DAILY Clindamycin (Clindamycin) 300 Mg Capsule 300 MG PO QID Escitalopram Oxalate (Escitalopram Oxalate) 20 Mg Tablet 20 MG PO DAILY Hydrochlorothiazide (Hydrochlorothiazide) 25 Mg Tablet 25 MG PO DAILY Lisinopril (Lisinopril) 10 Mg Tablet 10 MG PO DAILY Multivitamin (Multivitamins) 1 Each Capsule 1 EACH PO DAILY Pramipexole Dihydrochloride (Mirapex) 0.5 Mg Tablet 0.5 MG PO HS Trazodone (Trazodone) 50 Mg Tablet 100 MG PO HS Scheduled PRN ([Al Hydrox/Mg Hydrox/Simeth]) 30 ML SUSP 30 ML PO Q6H PRN PRN For Dyspepsia or Heartburn Hydromorphone PF (Hydromorphone PF) 2 Mg/1 Ml Vial 0 MG IV DIRECTED PRN PRN For Pain Ondansetron PF (Ondansetron PF) 4 Mg/2 Ml Vial 4 MG IVPUSH Q6H PRN PRN For Nausea/Vomiting Polyethylene Glycol 3350 (Miralax) 17 Gm Powd.pack 17 GM PO DAILY PRN PRN For Constipation Sennosides (Senna) 8.6 Mg Tablet 17.2 MG PO BID PRN PRN For Constipation General Time Seen by MD: 13:05 Chief Complaint Abdominal pain Hx Obtained From: Patient Arrived By: Walk-in Sudden in Onset?: No Onset Occurred: Yesterday Symptom Duration: Since onset Location: : Suprapubic Quality: Painful Severity: Current: Moderate Severity: Maximum: Moderate Associated with: Reports: Nausea, Denies: Vomiting Pertinent Negative: Pt denies other symptoms Similar Sx Previous: No Past Medical History Past Medical History Hypertension Ovarian mass seen on CT (08/12/2016), was found to be benign Past Surgical History Ovarian tumor removal Family History Noncontributory Smoking History Former Smoker Social History Other Social History: Local resident 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 Physical Exam Vital Signs Vital Signs (First) Date Time Temp Pulse Resp B/P Pulse Ox O2 Delivery O2 Flow Rate FiO2 09/29/16 12:56 36.6 74 16 131/95 98 Room Air Initial VS: Reviewed Head / Eyes: Atraumatic, Normocephalic Neck: Supple, Non-tender, Full range of motion Extremities: Vascular intact, Neuro intact, No swelling, No tenderness Skin: Warm, Dry, No cyanosis Neurologic: Alert, Oriented, Nonfocal General/Constitutional: Awake, Alert, Well developed Respiratory / Chest: Breath sounds NL, Breath sounds = bilat, No respiratory distress, No rales, No rhonchi, No wheezing, No stridor Cardiovascular: Heart rate NL, Regular rhythm, Heart sounds NL, Peripheral circulation NL Abdomen: Soft, No guarding, No rebound Tenderness/Guarding/Rebound: Positive: Tender suprapubic (mild) Midline surgical scar. At the inferior edge suprapubic there is a well-healing superficial ulcer approximately 3mm without drainage or bleeding. No underlying fluctuance or firmness. No surrounding erythema. Back: Inspection NL, Non-tender, No CVA tenderness Re-Eval/Medical Decision Med Decision/Clinical Course 45-year-old female history of ovarian tumor 5 weeks status post resection presenting with closure of her seroma drainage site. Mild pressure underneath. There is no evidence of infection. Ultrasound shows clotted seroma 4 x 2 x 1 cm. Discussed with her surgeon who recommends leaving it in follow-up in 2-3 weeks with her surgeon. Return precautions given regarding same symptoms of infection or any new or worsening abdominal pain or swelling. Re-Evaluation/Progress : Re-Evaluation/Progress Note: Discussed lab and imaging results and plan to discharge. Patient is amenable to the plan. Return precautions given. All other questions addressed. Counseled Regarding: Diagnosis, Lab results, Need for follow-up, When/why to return to ED Discharge & Departure Primary Impression: Seroma Additional Impression: Post-operative complication Disposition: Home Discharge Condition All VS Reviewed: Yes Condition: Stable Additional Instructions: Follow-up with your surgeon tomorrow. Return to the ER if you develop any worsening abdominal pain, fever, chills, nausea, vomiting, or any other signs/symptoms of infection. Referrals: Marybel Lee (PCP) Mino Attestation Portions of this note were transcribed by Samuel Luther. I, Dr. Tilley, personally performed the history, physical exam and medical decision-making; I reviewed and confirmed the accuracy of the information in the transcribed note. Signed by: Mino Rivera, 09/29/2016 at 14:43 copies to: Marybel Lee Ben M MD Sep 29, 2016 13:10 SAMUEL LUTHER Sep 29, 2016 13:20
--- NOTE | 2016-09-29 16:42 | DRSVH ---
PROCEDURE: US ABDOMEN, LIMITED ([id number]) INDICATIONS: evaluate surgical site for possible seroma/abscess TECHNIQUE: Real-time focused scanning was performed of the abdomen, with image documentation. COMPARISON: None. FINDINGS: Small complex incisional fluid collection is seen measuring 4.8 x 2.3 x 1.1 cm. Doppler as sessment demonstrates no internal flow. IMPRESSION: Multiloculated incisional fluid collection present. Differential diagnosis would include non-drainable abscess as well as evolving hematoma versus seroma. Correlate clinically. Dictated by: Luke CONSTANTINO Interpreted: Nila Collado MD on 09/29/2016 at 16:39 Transcribed by: GEOVANNA on 09/29/2016 at 16:41 Approved by: Nila Collado MD, PhD on 09/29/2016 at 16:43
== END 2016-09-29 15:30 | disposition home or self-care (01) ==
LOC: SED 12:43
DX: N99.842 Postprocedural seroma of a genitourinary system organ or structure following a genitourinary system procedure (principal); Y83.8 Other surgical procedures as the cause of abnormal reaction of the patient, or of later complication, without mention of misadventure at the time of the procedure; Y93.89 Activity, other specified; Y99.8 Other external cause status; Y92.89 Other specified places as the place of occurrence of the external cause; I10 Essential (primary) hypertension; Z87.891 Personal history of nicotine dependence; Z79.82 Long term (current) use of aspirin; Z88.8 Allergy status to other drugs, medicaments and biological substances

== ENCOUNTER 2016-10-12 17:21 | Emergency (ER) | payer OTHER ==
[~2016-10-12] VITALS: Ht 162.6 cm; Wt 106.8 kg
[2016-10-12 17:45] VITALS: BP 137/69; PULSE 89; RESP 21
[2016-10-12 18:25] VITALS: BP 133/73; PULSE 89; RESP 18; O2SAT 100
[2016-10-12 18:30] LABS: BASOPHILS % (AUTO) 0 % (0-3); EOSINOPHILS % (AUTO) 1.2 % (0-5); MONOCYTES % (AUTO) 7.4 % (4-12); Mean Corpuscular Hemoglobin 29.5 pg (27.0-35.0); Mean Corpuscular Volume 87.3 fL (81-100); NEUTROPHILS % (AUTO) 70.7 % (40-74); Platelet Count 320 bil/L (150-400)
--- NOTE | 2016-10-12 18:37 | ED.REPORT ---
HPI-Altered Mental Status Date of Service October 12, 2016 ED Provider: Josué Ortiz PAC History of Present Illness: 45yo female reportedly found unconcious by daughter and after speaking oin phone and losing conciousness. She is 8 weeks s/p ovarian tumor removal at [facility], had bilat oophorectomy at same time.She continues to have moderate abdominal pain and loose stools. Family reports here cognition was altered while waiting for EMS, it has now returned to baseline. Nursing Notes Stated Complaint: ALTERED MENTAL STATUS Chief Complaint: General Complaint Nursing Notes Reviewed: Yes Allergies: Coded Allergies: Adhesives (Verified Allergy, Severe, SKIN REACTION, 09/29/16) Uncoded Allergies: TINC OF BENZOIN (Allergy, Severe, BLISTERS, 09/30/09) Scheduled Aspirin (Aspirin) 81 Mg Tablet 81 MG PO DAILY Cholecalciferol (Vitamin D3) (Vitamin D3) 2,000 Unit Capsule 2,000 UNIT PO DAILY Clindamycin (Clindamycin) 300 Mg Capsule 300 MG PO QID Escitalopram Oxalate (Escitalopram Oxalate) 20 Mg Tablet 20 MG PO DAILY Hydrochlorothiazide (Hydrochlorothiazide) 25 Mg Tablet 25 MG PO DAILY Lisinopril (Lisinopril) 10 Mg Tablet 10 MG PO DAILY Multivitamin (Multivitamins) 1 Each Capsule 1 EACH PO DAILY Pramipexole Dihydrochloride (Mirapex) 0.5 Mg Tablet 0.5 MG PO HS Trazodone (Trazodone) 50 Mg Tablet 100 MG PO HS Scheduled PRN ([Al Hydrox/Mg Hydrox/Simeth]) 30 ML SUSP 30 ML PO Q6H PRN PRN For Dyspepsia or Heartburn Hydromorphone PF (Hydromorphone PF) 2 Mg/1 Ml Vial 0 MG IV DIRECTED PRN PRN For Pain Ondansetron PF (Ondansetron PF) 4 Mg/2 Ml Vial 4 MG IVPUSH Q6H PRN PRN For Nausea/Vomiting Polyethylene Glycol 3350 (Miralax) 17 Gm Powd.pack 17 GM PO DAILY PRN PRN For Constipation Sennosides (Senna) 8.6 Mg Tablet 17.2 MG PO BID PRN PRN For Constipation General Time Seen by MD: 18:30 Chief Complaint Disoriented syncope at home while talking to daughter on phone. Hx Obtained From: Patient, Spouse Arrived By: Ambulance Sudden in Onset?: Yes Onset Occurred: Just prior to arrival Symptom Duration: Since onset Progression since Onset: Gradually improving Location: : Abdomen Severity: Current: Moderate Severity: Maximum: Moderate Recent Healthcare: Recent doctor visit Similar Sx Previous: No Risk Factors )( IC Bleed Risk Strat RF Statements: No risk factors )( SAH Risk Stratification RF Statements: Risk factors reviewed Past Medical History Past Medical History Hypertension Ovarian mass seen on CT (08/12/2016), was found to be benign Past Surgical History Ovarian tumor removal Family History Noncontributory Smoking History Former Smoker Social History Drug Use: Denies drug use Other Social History: Local resident 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 Physical Exam Initial Vital Signs Vital Signs (First) Date Time Temp Pulse Resp B/P Pulse Ox O2 Delivery O2 Flow Rate FiO2 10/12/16 17:45 37.2 89 21 137/69 Room Air 10/12/16 18:25 100 Initial VS: Reviewed, Vital signs normal General/Constitutional: Awake, Alert, No acute distress, Well hydrated, Not toxic appearing Head / Eyes: Atraumatic, Normocephalic, PERRL, EOMI Neck: Supple, No meningismus, Full range of motion, Non-tender Respiratory / Chest: Breath sounds NL, Breath sounds = bilat, No respiratory distress Cardiovascular: Heart rate NL, Regular rhythm, Heart sounds NL Neurologic: Oriented X3, Speech NL, No motor deficits Abdomen: Atraumatic, BS normoactive Tenderness/Guarding/Rebound: Positive: Tender periumbilical surgical scar noted, slight dihiscence just below umbilicus Interpretation & Diagnostics Interpretation & Diagnostics: UDS at bedside negative Lab Results Interpretation Result Diagram: 10/12/16 1742 10/12/16 1742 Test 10/12/16 17:42 10/12/16 19:16 White Blood Count 10.0th/mm3 (3.8-10.1) Red Blood Count 4.41mil/mm3 (3.90-5.20) Hemoglobin 13.0g/dL (12.0-15.6) Hematocrit 38.5% (35.0-46.0) Mean Corpuscular Volume 87.3fL (81-100) Mean Corpuscular Hemoglobin 29.5pg (27.0-35.0) Mean Corpuscular Hemoglobin Concent 33.8% (32.0-37.0) Red Cell Distribution Width 12.5% (12.3-15.4) Platelet Count 320bil/L (150-400) Neutrophils (%) (Auto) 70.7% (40-74) Lymphocytes (%) (Auto) 20.5% (14-46) Monocytes (%) (Auto) 7.4% (4-12) Eosinophils (%) (Auto) 1.2% (0-5) Basophils (%) (Auto) 0% (0-3) Hold Purple Top Tube Received (Received) D-Dimer < 0.50mg/L FEU (<0.50) Hold Blue Top Tube Received (Received) Sodium Level 136mEq/L (134-144) Potassium Level 4.2mEq/L (3.5-5.2) Chloride Level 95mEq/L (97-108) Carbon Dioxide Level 26mmol/L (18-29) Blood Urea Nitrogen 9mg/dL (6-24) Creatinine 0.54mg/dL (0.57-1.00) Estimat Glomerular Filtration Rate 174mL/min (>59) Glucose Level 109mg/dL (60-99) Calcium Level 9.9mg/dL (8.5-10.1) Total Bilirubin 0.5mg/dL (0.0-1.2) Aspartate Amino Transf (AST/SGOT) 16U/L (0-50) Alanine Aminotransferase (ALT/SGPT) 22U/L (0-32) Alkaline Phosphatase 62U/L (25-150) Total Protein 7.7g/dL (6.4-8.4) Albumin 4.3g/dL (3.4-5.0) Hold [place] Top Tube Received (Received) Urine Color Straw (YELLOW) Urine Appearance Clear (CLEAR,HAZY) Urine pH 7.0 (5.0-8.0) Urine Specific [place] 1.005 (1.003-1.035) Urine Protein Negativemg/dL (NEG,TRACE) Urine Glucose (UA) Negativemg/dL (NEGATIVE) Urine Ketones Negativemg/dL (NEGATIVE) Urine Occult Blood Negative (NEGATIVE) Urine Nitrite Negative (NEGATIVE) Urine Bilirubin Negative (NEGATIVE) Urine Urobilinogen Normalmg/dL (NORMAL) Urine Leukocyte Esterase Negative (NEGATIVE) Urine RBC 0-2/hpf (0-2) Urine WBC 0-5/hpf (0-5) Urine Epithelial Cells Few/hpf (NONE-MOD) Urine Crystals None seen (NONE SEEN) Urine Bacteria Few/hpf (NONE-FEW) Urine Hyaline Casts None/lpf (NONE) Urine Granular Casts None seen (NONE SEEN) Urine Waxy Casts None seen (NONE SEEN) Urine Red Blood Cell Casts None seen (NONE SEEN) Urine White Blood Cell Casts None seen (NONE SEEN) Urine Mucus None seen (None Seen) Urine Trichomonas None seen (NONE SEEN) Urine Yeast None (NONE SEEN) Urinalysis Comment None Urine Culture Reflexed Not indicated X-Ray Abdominal Interpretation PROCEDURE: X-RAY ACUTE ABDOMINAL SERIES ([id number]) INDICATIONS: abdominal pain, surgery in August, TECHNIQUE: One view chest and two views of the abdomen were acquired. COMPARISON: None. FINDINGS: Surgical changes and devices: Cholecystectomy clips as well as right lower quadrant clips are noted. Chest: Lungs are clear. Heart size is normal. No pleural effusions. No pneumoperitoneum. Abdomen: Bowel gas pattern is normal. Moderate stool. No suspicious calcifications. Visualized solid organ contours appear normal. Bones: No suspicious bony lesions. IMPRESSION: Moderate stool without obstruction. Recommend correlation constipation. Dictated by: Stacie Dyer M.D. on 10/12/2016 at 19:36 Approved by: Russel Nicolas CT Head Interpretation PROCEDURE: CT BRAIN WITHOUT CONTRAST ([id number]) INDICATIONS: AMS TECHNIQUE: Noncontrast 4.5 mm thick angled axial sections acquired from the foramen magnum to the vertex, with coronal reformats. COMPARISON: None. FINDINGS: Image quality: Excellent. CSF spaces: Basal cisterns are patent. No extra-axial fluid collections. Ventricles are normal in size and shape. Brain: No midline shift. No intracranial masses or hemorrhage. Karimi-white matter interface is normal. Skull and face: Calvarium and visualized facial bones are intact, without suspicious lesions. Sinuses: Visualized sinuses and mastoids are clear. IMPRESSION: 1. No acute intracranial process. Dictated by: Stacie Dyer M.D. on 10/12/2016 at 20:09 Approved by: Stacie Dyer M.D. on 10/12/2016 at 20:10 Re-Eval/Medical Decision Med Decision/Clinical Course Case discussed with Dr. Ashby who assumed care at shift change and advised d-dimer I assumed care of this patient from Ubaldo Ortiz PA-C at approximately 2130. D- dimer was added to exclude more definitively the possibility of pulmonary embolism. This test was reassuring. I interviewed the patient in detail and examined her myself. She is a small purulent draining wound in the lower abdomen. She is a soft abdomen otherwise. She has an appointment with her [facility] surgeon tomorrow morning. All of the evaluation on him or sperm is reassuring and I believe that outpatient follow-up tomorrow as planned is appropriate. No culture was taken so as to not introduce the difficulty of obtaining results across systems since she is going to be seen in 12 hours anyway. I believe that her cause for her symptoms earlier today was probably a near syncopal/ syncopal event related to vasovagal syncope in accommodation with nausea vomiting estrogen patch administration and the draining painful wound. 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 We opted not to institute antibiotics or do cultures because of the very short time until you see your provider tomorrow. All vital signs, imaging and laboratory data is reassuring. Referrals: Marybel Lee (PCP) Care Transferred to: Dr. Ashby Care Transferred at: 21:41 EDSupervising Provider for APC: Babak Ashby MD, Christopher R PAC October 12, 2016 18:37 Yuri May October 12, 2016 22:19 Babak Ashby MD October 12, 2016 22:23
[2016-10-12 19:32] LABS: APPEARANCE,URINE CLEAR (CLEAR,HAZY); COLOR,URINE STRAW (YELLOW); OCCULT BLOOD,URINE NEGATIVE (NEGATIVE); UROBILINOGEN,URINE NORMAL (NORMAL)
--- NOTE | 2016-10-12 19:39 | DRSVH ---
PROCEDURE: X-RAY ACUTE ABDOMINAL SERIES ([id number]) INDICATIONS: abdominal pain, surgery in August, TECHNIQUE: One view chest and two views of the abdomen were acquired. COMPARISON: None. FINDINGS: Surgical changes and devices: Cholecystectomy clips as well as right lower quadrant clips are noted. Chest: Lungs are clear. Heart size is normal. No pleural effusions. No pneumoperitoneum. Abdomen: Bowel gas pattern is normal. Moderate stool. No suspicious calcifications. Visualized khanh id organ contours appear normal. Bones: No suspicious bony lesions. IMPRESSION: Moderate stool without obstruction. Recommend correlation constipation. Dictated by: Stacie Dyer M.D. on 10/12/2016 at 19:36 Approved by: Stacie Dyer M.D. on 10/12/2016 at 19:37
[2016-10-12] MEDS ORDERED: Ondansetron 2 mg/mL 2 mL Inj IVPUSH PRN (20:05)
--- NOTE | 2016-10-12 20:12 | DRSVH ---
PROCEDURE: CT BRAIN WITHOUT CONTRAST ([id number]) INDICATIONS: AMS TECHNIQUE: Noncontrast 4.5 mm thick angled axial sections acquired from the foramen magnum to the vertex, with c oronal reformats. COMPARISON: None. FINDINGS: Image quality: Excellent. CSF spaces: Basal cisterns are patent. No extra-axial fluid collections. Ventricles are normal in size and shape. Brain: No midline shift. No intracranial masses or hemorrhage. Karimi-white matter interface is norm al. Skull and face: Calvarium and visualized facial bones are intact, without suspicious lesions. Sinuses: Visualized sinuses and mastoids are clear. IMPRESSION: 1. No acute intracranial process. Dictated by: Stacie Dyer M.D. on 10/12/2016 at 20:09 Approved by: Stacie Dyer M.D. on 10/12/2016 at 20:10
[2016-10-12 20:59] VITALS: BP 133/66; PULSE 77; RESP 16; O2SAT 96
[2016-10-12 22:38] VITALS: BP 127/55; PULSE 80; O2SAT 95
== END 2016-10-12 22:39 | disposition home or self-care (01) ==
LOC: EDBD 17:21 → SED 17:21 → EDUNIT# 17:21 → SED 22:39
DX: R55 Syncope and collapse (principal); T81.4XXA Infection following a procedure, initial encounter; Y84.8 Other medical procedures as the cause of abnormal reaction of the patient, or of later complication, without mention of misadventure at the time of the procedure; Y93.9 Activity, unspecified; Y92.9 Unspecified place or not applicable; Y99.9 Unspecified external cause status; I10 Essential (primary) hypertension; Z87.891 Personal history of nicotine dependence; Z79.82 Long term (current) use of aspirin; Z79.899 Other long term (current) drug therapy
CPT/HCPCS: 36415; 70450; 74022; 80053; 81000; 85025; 85378; 93005; 96374; 99285; J2405